=== PATIENT | female | born 1945 | race Caucasian/White ===

== ENCOUNTER → 2018-05-17 14:50 | Outpatient (CLI) | payer MEDICARE, SELFPAY ==
[2018-05-17 15:30] LABS: Add Manual Diff / Slide Review NO; Basophils Percent Auto 0.9 % (0-2); Eosinophils Percent Auto 2.3 % (2-4); Hematocrit 43.5 % (36-46); Hemoglobin 15.3 g/dL (12.0-16.0); Lymphocytes Percent Auto 38.4 % (25-40); Mean Corpuscular HGB Conc 35.2 % (30-36); Mean Corpuscular Hemoglobin 31.7 PG (26-34); Monocytes Percent Auto 7.4 % (3-14); Neutrophils Absolute Auto 3500 /uL (3000-5900); Platelet Count 182 X10^3/uL (150-400); Red Blood Cell Count 4.83 X10^6/uL (4.0-5.2); Red Cell Distribution Width 13.6 % (11.6-14.8); White Blood Cell Count 6.8 X10^3/uL (4.5-11.0)
[2018-05-17 15:31] LABS: INR 1.1 (0.9-1.3); Prothrombin Time 11.5 SECONDS (10.1-12.7)
[2018-05-17 15:37] LABS: Blood Urea Nitrogen 32 mg/dL (7-17); Calcium 10.4 mg/dL (8.4-10.2); Carbon Dioxide 22 mmol/L (22-32); Chloride 107 mmol/L (98-107); Estimated Glomerular Filt Rate 54.2 mL/min (>60); Glucose 115 mg/dL (80-110); HEMOLYSIS 15 (0-50); Potassium 3.5 mmol/L (3.4-5.1); Sodium 144 mmol/L (137-145)
[2018-05-17 15:57] LABS: Hemoglobin A1C% w Est Avg Glu 5.5 % (4.0-6.0)
== END ==
PROVIDERS: PCP Internal Medicine; Visit Provider Physical Medicine & Rehabilitation
DX: Z01.818 Encounter for other preprocedural examination (principal); Z51.81 Encounter for therapeutic drug level monitoring
CPT/HCPCS: 36415; 80048; 83036; 85025; 85610

== ENCOUNTER → 2018-06-03 17:06 | Outpatient (CLI) | payer MEDICARE, SELFPAY ==
--- NOTE | 2018-06-03 17:08 | DI.MRI.S_ITS ---
PROCEDURE: MR THORACIC SPINE WO CON INDICATIONS: THORACIC SPINE TECHNIQUE: Noncontrast sagittal T1 spine echo and T2 fast spin echo, sagittal STIR, axial T1 and T2 fast spin echo through the thoracic spine. COMPARISON: [facility], MR, L-SPINE W&WO CONTRAST, 07/22/2015, 13:43. [facility], CR, CHEST 2 VIEW, 10/14/2010, 12:01. [facility], CR, SPINE LUMB 2 OR 3VW, 06/30/2015, 14:03. [facility], CR, SPINE LUMB 2 OR 3VW, 10/14/2015, 9:45. FINDINGS: Image quality: Diagnostic, with note made of motion artifact. Alignment and Curvature: Accentuated thoracic kyphosis is seen. No focal AP alignment abnormality is seen. Bone Marrow: Marrow is of normal overall signal. No acute vertebral body compression fractures. Spinal Cord: Visualized spinal cord is normal in size and signal. Paraspinous Soft Tissues: There is a simple appearing cyst seen within the right posterior liver, as on series 8 image 25 measuring 2.6 cm. Miscellaneous: At the T7-T8 level, there is mild disc bulge seen. Minimal to mild central canal narrowing is seen. No significant neural foraminal narrowing is seen. At the T8-T9 level, there is mild disc bulge seen, particularly within the central/right region. Mild central canal narrowing is seen. No neural foraminal narrowing is seen. At the T9-T10 level, moderate loss of disc height is seen. Likely bridging anterior osteophytes are present at this level. Minimal to mild disc bulge is seen. There is no significant neural foraminal narrowing and no significant central canal narrowing. IMPRESSION: Lower thoracic spine degenerative changes are seen, which are overall most prominent at the T8-T9 level. Dictated by: Albert Richards M.D. on 06/03/2018 at 19:51 Approved by: Albert Richards M.D. on 06/03/2018 at 19:56
== END ==
PROVIDERS: Family Provider Internal Medicine; PCP Internal Medicine; Visit Provider Physical Medicine & Rehabilitation
DX: M51.34 Other intervertebral disc degeneration, thoracic region (principal)
CPT/HCPCS: 72146

== ENCOUNTER → 2018-06-04 14:31 | Outpatient (CLI) | payer MEDICARE, SELFPAY ==
--- NOTE | 2018-06-04 | DI.RAD.S_ITS ---
This blank DEXA report has been sent in error by the PACS system. The correct and complete report will be forthcoming in 1-2 days. Thank you for your patience and understanding. Dictated by: Maryam Clement MD, PhD on 06/04/2018 at 15:14 Approved by: Maryam Clement MD, PhD on 06/04/2018 at 15:15
== END ==
PROVIDERS: PCP Internal Medicine; Visit Provider Internal Medicine
DX: M85.831 Other specified disorders of bone density and structure, right forearm (principal); Z78.0 Asymptomatic menopausal state; Z90.722 Acquired absence of ovaries, bilateral; Z87.891 Personal history of nicotine dependence
CPT/HCPCS: 77080; 77081

== ENCOUNTER → 2018-06-07 11:06 | Outpatient (CLI) | payer MEDICARE, SELFPAY ==
--- NOTE | 2018-06-07 | DI.MRI.S_ITS ---
PROCEDURE: MR LUMBAR SPINE WO CON INDICATIONS: LUMBAR RADICULOPATHY TECHNIQUE: Noncontrast sagittal T1 spin echo and T2 fast echo, sagittal STIR, axial T1 and T2 fast spin echo through the lumbar spine. In cases with scoliosis, additional coronal T2 fast spin echo may be performed. COMPARISON: [facility], MR, L-SPINE W&WO CONTRAST, 07/22/2015, 13:43. [facility], MR, L-SPINE WITHOUT CONTRAST, 01/26/2015, 9:13. FINDINGS: Image quality: Excellent. Alignment and Curvature: There is posterior fusion of L2-4. There is trace retrolithesis of L1 on L2 and trace anterolithesis of L5 on S1, unchanged. Bone Marrow: Marrow is of normal overall signal. No acute vertebral body compression fractures. Spinal Cord: Conus medullaris terminates at the L1 level. Visualized cord demonstrates normal signal and size. Paraspinous Soft Tissues: No paravertebral masses. Bilateral renal hyperintensities are present most suggestive of cysts. Multi-level disc dessication is present. L1-L2: Mild disc bulge, including right lateral component, which is new. There is mild spinal stenosis. Mild left and moderate to severe right foraminal narrowing, progressive on the right Facet hypertrophy is present. L2-L3: Status post fusion. Minimal residual disc bulge. Mild spinal stenosis. Mild to moderate bilateral foraminal narrowing, slightly progressive. L3-L4: Status post fusion. No spinal stenosis. There is moderate right and mild left foraminal narrowing with facet hypertrophy, slightly progressive on the right. L4-L5: Mild disc bulge without spinal stenosis. There is moderate to severe left and mild right foraminal narrowing, slightly progressive. Facet hypertrophy is present. L5-S1: Mild disc bulge with slight left posterior paracentral prominence with asymmetric bulge. There is unchanged appearance of mild compromise of the left lateral recess. There is severe left and mild right foraminal narrowing with slight flattening on the left, slightly progressive. Facet hypertrophy is present. IMPRESSION: 1. Multilevel degenerative and postsurgical changes as above. Areas of interval progression are noted. 2. Severe foraminal narrowing remains at L5-S1 secondary to facet arthropathy with small contributing effect of anterolisthesis. 3. Mild spinal stenosis is present L1-L2 as above. Dictated by: Kerri Hopkins M.D. on 06/07/2018 at 12:48 Approved by: Kerri Hopkins M.D. on 06/07/2018 at 13:17
== END ==
PROVIDERS: PCP Internal Medicine; Visit Provider Physical Medicine & Rehabilitation
DX: M51.16 Intervertebral disc disorders with radiculopathy, lumbar region (principal); M51.17 Intervertebral disc disorders with radiculopathy, lumbosacral region; M48.061 Spinal stenosis, lumbar region without neurogenic claudication; M48.07 Spinal stenosis, lumbosacral region
CPT/HCPCS: 72148